=== PATIENT | female | born 1990 | race Asian ===

== ENCOUNTER → 2017-02-12 | Outpatient (CLI) | payer OTHER ==
[2017-02-12 09:23] LABS: HEMATOCRIT 40.6 % (34.6-47.8); HEMOGLOBIN 13.7 g/dL (11.7-16.4); WHITE BLOOD COUNT 5.6 x10^3/uL (3.4-10)
[2017-02-12 09:34] LABS: BLOOD UREA NITROGEN 16 mg/dL (7-18)
[2017-02-12 09:45] LABS: ASPARTATE AMINO TRANSFERASE 15 U/L (15-37)
== END | disposition home or self-care (01) ==
LOC: LAB 08:52
PROVIDERS: ATTEND Nurse Practitioner Family
DX: E78.2 Mixed hyperlipidemia (principal); E55.9 Vitamin D deficiency, unspecified; G43.909 Migraine, unspecified, not intractable, without status migrainosus; Z83.3 Family history of diabetes mellitus
CPT/HCPCS: 36415; 80053; 80061; 82306; 84436; 84443; 84481; 85025

== ENCOUNTER → 2017-06-21 | Outpatient (CLI) | payer OTHER | END | disposition home or self-care (01) | LOC: LAB 11:25 | PROVIDERS: ATTEND Nurse Practitioner Family | DX: R10.13 Epigastric pain (principal); R11.0 Nausea | CPT/HCPCS: 36415; 86677 ==

== ENCOUNTER → 2018-01-20 | Outpatient (CLI) | payer OTHER ==
[2018-01-20 09:54] LABS: BASOPHILS # (AUTO) 0.02 x10^3/uL (0-0.1); BASOPHILS % (AUTO) 0 % (0-1); EOSINOPHILS # (AUTO) 0.17 x10^3/uL (0-0.4); EOSINOPHILS % (AUTO) 3 % (1-7); LYMPHOCYTES # (AUTO) 1.52 x10^3/uL (1-3.4); LYMPHOCYTES % (AUTO) 27 % (22-44); MD NO; MEAN CORPUSCULAR HEMOGLOBIN 29.3 pg (27.0-34.8); MEAN CORPUSCULAR HGB CONC 33.6 g/dL (32.4-35.8); MEAN CORPUSCULAR VOLUME 87.1 fL (80-100); MEAN PLATELET VOLUME 7.9 fL (7.4-10.4); MONOCYTES # (AUTO) 0.39 x10^3/uL (0.2-0.8); MONOCYTES % (AUTO) 7 % (2-9); NEUTROPHILS # (AUTO) 3.48 x10^3/uL (1.8-6.8); NEUTROPHILS % (AUTO) 62 % (42-75); PLATELET COUNT 307 x10^3/uL (130-400); RED BLOOD COUNT 4.52 x10^6/uL (3.82-5.3); RED CELL DISTRIBUTION WIDTH 13.3 % (9.6-15.2)
[2018-01-20 10:06] LABS: ALBUMIN 3.9 g/dL (3.4-5.0); ANION GAP 8 mmol/L (5-15); CALCIUM 8.7 mg/dL (8.5-10.1); CHLORIDE 109 mmol/L (98-107)
[2018-01-20 10:31] LABS: ALANINE AMINOTRANSFERASE 16 U/L (12-78); ALKALINE PHOSPHATASE 38 U/L (45-117); BILIRUBIN,TOTAL 0.2 mg/dL (0.2-1.0); CHOL/HDL RATIO 1.8; CHOLESTEROL, TOTAL 122 mg/dL (140-239); CREATININE 0.83 mg/dL (0.55-1.02); HDL CHOL % 56 % (28-40); HDL CHOLESTEROL (DIRECT) 68 mg/dL (40-60); LDL CHOLESTEROL,CALCULATED 46 mg/dL (54-169); LDL/HDL RATIO 0.7 (0.5-3.0); T4 (THYROXINE) 8.6 mcg/dL (4.8-13.9); TOTAL PROTEIN 7.6 g/dL (6.4-8.2); TRIGLYCERIDES 38 mg/dL (50-200); VLDL CHOLESTEROL 8 mg/dL (0-25)
== END | disposition home or self-care (01) ==
LOC: LAB 09:36
PROVIDERS: ATTEND Nurse Practitioner Family
DX: E55.9 Vitamin D deficiency, unspecified (principal); E78.2 Mixed hyperlipidemia; G43.909 Migraine, unspecified, not intractable, without status migrainosus; R10.13 Epigastric pain; R11.0 Nausea
CPT/HCPCS: 36415; 80053; 80061; 82306; 82607; 83735; 84436; 84443; 84481; 85025

== ENCOUNTER 2019-01-19 11:09 | Observation (INO) | payer OTHER ==
[~2019-01-19] VITALS: Ht 154.9 cm; Wt 59.0 kg
== END 2019-01-19 17:15 | disposition home or self-care (01) ==
LOC: LDOP 11:09 → LDIP 13:00
PROVIDERS: ADMIT Obstetrics & Gynecology; ATTEND Obstetrics & Gynecology
DX: O46.93 Antepartum hemorrhage, unspecified, third trimester (principal); Z3A.38 38 weeks gestation of pregnancy
CPT/HCPCS: 59025; 76815; 84112; 99211; G0378; G0463

== ENCOUNTER 2019-01-20 04:56 | Inpatient (IN) | payer OTHER ==
[~2019-01-20] VITALS: Ht 154.9 cm; Wt 59.0 kg
[2019-01-20 05:49] VITALS: BP 125/76
[2019-01-20] MEDS: D5%-LACTATED RINGERS 1,000 ML IV SCH ×3 (05:54→21:54)
[2019-01-20] MEDS ORDERED: OXYTOCIN 30U/ 0.9% NaCL 500ML 500 ML IV ONE (05:54)
[2019-01-20] MEDS ORDERED: TERBUTALINE 1 MG/ML, 1ML IVPush PRN (06:00)
[2019-01-20] MEDS ORDERED: METOCLOPRAMIDE 5 MG/ML, 2ML IVPush PRN (06:00)
[2019-01-20] MEDS ORDERED: CALCIUM CARBONATE 500 MG TAB.CHEW PO PRN (06:00)
[2019-01-20] MEDS ORDERED: FENTANYL PF 100 MCG/2ML IV PRN (06:00)
[2019-01-20] MEDS ORDERED: SODIUM CITRATE/CITRIC ACID 15 ML UDC PO PRN (06:00)
[2019-01-20] MEDS ORDERED: FENTANYL PF 100 MCG/2ML IVPush PRN (06:00)
[2019-01-20] MEDS ORDERED: ONDANSETRON 2MG/ML, 2ML IVPush PRN (06:00)
[2019-01-20] MEDS ORDERED: LIDOCAINE 1%, 20ML ONE (06:13)
[2019-01-20] MEDS ORDERED: NEWBORN KIT ONE (06:13)
[2019-01-20] MEDS ORDERED: MISOPROSTOL 200 MCG TABLET ONE (06:14)
[2019-01-20] MEDS ORDERED: OXYTOCIN 30U/ 0.9% NaCL 500ML 500 ML ONE (06:14)
[2019-01-20 06:18] LABS: BASOPHILS # (AUTO) 0.02 x10^3/uL (0-0.1); BASOPHILS % (AUTO) 0 % (0-1); EOSINOPHILS # (AUTO) 0.05 x10^3/uL (0-0.4); EOSINOPHILS % (AUTO) 1 % (1-7); LYMPHOCYTES # (AUTO) 1.43 x10^3/uL (1-3.4); LYMPHOCYTES % (AUTO) 23 % (22-44); MD NO; MEAN CORPUSCULAR HEMOGLOBIN 31.2 pg (27.0-34.8); MEAN CORPUSCULAR HGB CONC 33.2 g/dL (32.4-35.8); MEAN CORPUSCULAR VOLUME 93.8 fL (80-100); MEAN PLATELET VOLUME 8.9 fL (7.4-10.4); MONOCYTES # (AUTO) 0.37 x10^3/uL (0.2-0.8); MONOCYTES % (AUTO) 6 % (2-9); NEUTROPHILS % (AUTO) 70 % (42-75); PLATELET COUNT 195 x10^3/uL (130-400); RED BLOOD COUNT 4.03 x10^6/uL (3.82-5.3); RED CELL DISTRIBUTION WIDTH 14.7 % (9.6-15.2)
[2019-01-20] MEDS: LACTATED RINGERS 1,000 ML IV SCH ×4 (06:20→22:59)
[2019-01-20] MEDS ORDERED: FENTANYL/BUPIV./NS/PF 250 ML EPIDCONT SCH ×2 (06:40→14:24)
[2019-01-20] MEDS ORDERED: PENICILLIN GK 5,000,000 UNITS in DEXTROSE 5% 100 ML IVPB ONE (07:00)
[2019-01-20] MEDS ORDERED: FENTANYL PF 100 MCG/2ML ONE (09:36)
[2019-01-20] MEDS: PENICILLIN GK 2,500,000 UNITS in DEXTROSE 5% 100 ML IVPB SCH ×3 (12:02→20:35)
[2019-01-20] MEDS ORDERED: OXYTOCIN 30U/ 0.9% NaCL 500ML 500 ML IV PRN (12:35)
[2019-01-20] MEDS: LACTATED RINGERS 1,000 ML IVBOLUS PRN ×2 (12:45→13:45)
[2019-01-20] MEDS ORDERED: FENTANYL PF 500 MCG, BUPIVACAINE/PF 0.5%, 30ML 62.5 ML in SODIUM CHLORIDE 0.9% 177.5 ML EPIDCONT SCH (13:30)
[2019-01-20] MEDS ORDERED: BUPIVACAINE 0.25% ONE (13:56)
[2019-01-20] MEDS ORDERED: EPHEDRINE 50 MG/ML, 1ML IVPush PRN (14:30)
[2019-01-21] MEDS: PENICILLIN GK 2,500,000 UNITS in DEXTROSE 5% 100 ML IVPB SCH ×3 (00:34→04:31)
[2019-01-21] MEDS ORDERED: FENTANYL PF 100 MCG/2ML ONE (05:24)
[2019-01-21] MEDS ORDERED: OXYTOCIN 30U/ 0.9% NaCL 500ML 500 ML ONE (05:43)
[2019-01-21] MEDS: LACTATED RINGERS 1,000 ML IV SCH ×2 (05:46→05:54)
[2019-01-21] MEDS: D5%-LACTATED RINGERS 1,000 ML IV SCH (05:54)
[2019-01-21] MEDS ORDERED: MISOPROSTOL 200 MCG TABLET PR PRN (06:00)
[2019-01-21] MEDS ORDERED: METHYLERGONOVINE 0.2 MG/ML IM PRN (06:00)
[2019-01-21] MEDS ORDERED: OXYcodone/APAP 5/325MG TABLET PO PRN (06:00)
[2019-01-21] MEDS ORDERED: ONDANSETRON 2MG/ML, 2ML IV PRN (06:00)
[2019-01-21] MEDS ORDERED: ACETAMINOPHEN 325 MG TABLET PO PRN (06:00)
[2019-01-21] MEDS: OXYTOCIN 30U/ 0.9% NaCL 500ML 500 ML IV SCH ×2 (06:21→15:47)
[2019-01-21] MEDS ORDERED: IBUPROFEN 600 MG TABLET ONE (07:06)
[2019-01-21] MEDS: IBUPROFEN 600 MG TABLET PO PRN ×3 (07:08→19:43)
[2019-01-21 08:28] VITALS: BP 123/77
[2019-01-21] MEDS: PRENATAL VIT/IRON/FA 1 EACH TABLET PO SCH (09:00)
[2019-01-21 12:26] VITALS: BP 112/68
[2019-01-21 13:21] LABS: MEAN CORPUSCULAR HEMOGLOBIN 32.1 pg (27.0-34.8); MEAN CORPUSCULAR HGB CONC 33.2 g/dL (32.4-35.8); MEAN CORPUSCULAR VOLUME 96.4 fL (80-100); MEAN PLATELET VOLUME 8.7 fL (7.4-10.4); PLATELET COUNT 183 x10^3/uL (130-400); RED BLOOD COUNT 3.82 x10^6/uL (3.82-5.3); RED CELL DISTRIBUTION WIDTH 14.6 % (9.6-15.2)
[2019-01-21 13:43] LABS: BASOPHILS # (AUTO) 0.03 x10^3/uL (0-0.1); BASOPHILS % (AUTO) 0 % (0-1); EOSINOPHILS # (AUTO) 0.01 x10^3/uL (0-0.4); EOSINOPHILS % (AUTO) 0 % (1-7); LYMPHOCYTES # (AUTO) 1.08 x10^3/uL (1-3.4); LYMPHOCYTES % (AUTO) 8 % (22-44); MD SCAN; MONOCYTES # (AUTO) 0.44 x10^3/uL (0.2-0.8); MONOCYTES % (AUTO) 3 % (2-9); NEUTROPHILS # (AUTO) 11.82 x10^3/uL (1.8-6.8); NEUTROPHILS % (AUTO) 88 % (42-75)
[2019-01-21 16:50] VITALS: BP 105/64
[2019-01-21] MEDS: DOCUSATE 100 MG CAPSULE PO PRN (19:43)
[2019-01-21 19:45] VITALS: BP 122/75
[2019-01-21 23:48] VITALS: BP 115/74
[2019-01-22] MEDS: IBUPROFEN 600 MG TABLET PO PRN ×2 (01:43→09:26)
[2019-01-22] MEDS: OXYTOCIN 30U/ 0.9% NaCL 500ML 500 ML IV SCH (01:47)
[2019-01-22 04:45] VITALS: BP 113/73
[2019-01-22] MEDS: PRENATAL VIT/IRON/FA 1 EACH TABLET PO SCH (09:26)
[2019-01-22] MEDS: DOCUSATE 100 MG CAPSULE PO PRN (09:26)
[2019-01-22 09:30] VITALS: BP 111/70
[2019-01-22] MEDS ORDERED: IBUP-1222 PO (12:14)
== END 2019-01-22 13:00 | disposition home or self-care (01) | DRG 807 ==
LOC: LDOP 04:56 → LDIP 05:47 → 2NW 01-21 08:13
PROVIDERS: ADMIT Obstetrics & Gynecology; ATTEND Obstetrics & Gynecology
PROC: 10E0XZZ Delivery of Products of Conception, External Approach (ICD-10-PCS; principal; 2019-01-21)
PROC: 0KQM0ZZ Repair Perineum Muscle, Open Approach (ICD-10-PCS; 2019-01-21)
PROC: 10907ZC Drainage of Amniotic Fluid, Therapeutic from Products of Conception, Via Natural or Artificial Opening (ICD-10-PCS; 2019-01-21)
PROC: 10H07YZ Insertion of Other Device into Products of Conception, Via Natural or Artificial Opening (ICD-10-PCS; 2019-01-21)
PROC: 3E0R3BZ Introduction of Anesthetic Agent into Spinal Canal, Percutaneous Approach (ICD-10-PCS; 2019-01-21)
PROC: 00HU33Z Insertion of Infusion Device into Spinal Canal, Percutaneous Approach (ICD-10-PCS; 2019-01-21)
DX: O99.824 Streptococcus B carrier state complicating childbirth (principal); Z37.0 Single live birth; O99.354 Diseases of the nervous system complicating childbirth; O77.0 Labor and delivery complicated by meconium in amniotic fluid; O70.1 Second degree perineal laceration during delivery; Z3A.38 38 weeks gestation of pregnancy; G43.909 Migraine, unspecified, not intractable, without status migrainosus
CPT/HCPCS: 36415; S0020; 84112; 85025; 86850; 86900; 86923; G0378; J2540; J3010; J2590; J7050; J7120